=== PATIENT | female | born 1945 | race Caucasian/White ===

== ENCOUNTER → 2019-11-15 12:02 | Outpatient (BNVA) | payer MEDICARE, SELFPAY | PROVIDERS: Family Provider Nurse Practitioner; PCP Nurse Practitioner; Visit Provider Nurse Practitioner Family | DX: I10 Essential (primary) hypertension (principal); E78.2 Mixed hyperlipidemia; R53.83 Other fatigue; R25.2 Cramp and spasm; Z79.899 Other long term (current) drug therapy | CPT/HCPCS: 80053; 80061; 81001; 83036; 83735; 84443; 85025; 87086 ==

== ENCOUNTER → 2021-01-04 12:04 | Outpatient (BNVA) | payer MEDICARE, SELFPAY | PROVIDERS: Family Provider Nurse Practitioner; PCP Nurse Practitioner Family; Visit Provider Nurse Practitioner Family | DX: I10 Essential (primary) hypertension (principal); Z79.899 Other long term (current) drug therapy; E55.9 Vitamin D deficiency, unspecified; E78.2 Mixed hyperlipidemia | CPT/HCPCS: 80053; 80061; 81003; 82306; 83036; 84443; 85025; 87077; 87086; 87184 ==

== ENCOUNTER → 2021-01-23 09:37 | Outpatient (BNVA) | payer MEDICARE, SELFPAY | PROVIDERS: Family Provider Nurse Practitioner; PCP Nurse Practitioner Family; Visit Provider Nurse Practitioner Family | DX: N39.0 Urinary tract infection, site not specified (principal) | CPT/HCPCS: 81003 ==

== ENCOUNTER → 2021-05-22 09:41 | Outpatient (BNVA) | payer MEDICARE, SELFPAY | PROVIDERS: Family Provider Nurse Practitioner; PCP Nurse Practitioner Family; Visit Provider Nurse Practitioner Family | DX: R53.83 Other fatigue (principal); I10 Essential (primary) hypertension | CPT/HCPCS: 80053; 81003; 82043; 82607; 83550; 85025 ==

== ENCOUNTER → 2022-01-27 09:58 | Outpatient (BNVA) | payer MEDICARE, SELFPAY | PROVIDERS: Family Provider Nurse Practitioner; PCP Nurse Practitioner Family; Visit Provider Nurse Practitioner Family | DX: I10 Essential (primary) hypertension (principal); E78.2 Mixed hyperlipidemia; R53.83 Other fatigue; Z79.899 Other long term (current) drug therapy; N39.0 Urinary tract infection, site not specified | CPT/HCPCS: 80053; 80061; 81003; 82306; 83036; 84443; 85025 ==

== ENCOUNTER → 2023-04-16 08:37 | Outpatient (BNVA) | payer MEDICARE, SELFPAY | PROVIDERS: Family Provider Nurse Practitioner; PCP Nurse Practitioner; Visit Provider Nurse Practitioner | DX: I10 Essential (primary) hypertension (principal); Z79.899 Other long term (current) drug therapy; E78.2 Mixed hyperlipidemia; R53.83 Other fatigue | CPT/HCPCS: 80053; 80061; 84443; 85025 ==

== ENCOUNTER → 2023-05-12 09:48 | Outpatient (BNVA) | payer MEDICARE, OTHER, SELFPAY | PROVIDERS: Family Provider Nurse Practitioner; PCP Nurse Practitioner; Visit Provider Nurse Practitioner | DX: R30.0 Dysuria (principal) | CPT/HCPCS: 81000 ==

== ENCOUNTER → 2024-03-11 09:02 | Outpatient (BNVA) | payer MEDICARE, OTHER, SELFPAY | PROVIDERS: Family Provider Nurse Practitioner; PCP Nurse Practitioner; Visit Provider Nurse Practitioner Family | DX: Z79.899 Other long term (current) drug therapy (principal); R53.83 Other fatigue; E78.2 Mixed hyperlipidemia; I10 Essential (primary) hypertension | CPT/HCPCS: 80061; 81003; 82306; 83036; 84443; 85025 ==

== ENCOUNTER → 2024-03-16 10:39 | Outpatient (BNVA) | payer MEDICARE, OTHER, SELFPAY | PROVIDERS: Family Provider Nurse Practitioner; PCP Nurse Practitioner Family; Visit Provider Nurse Practitioner Family | DX: F32.89 Other specified depressive episodes (principal); F41.8 Other specified anxiety disorders; E78.2 Mixed hyperlipidemia; I10 Essential (primary) hypertension; D64.9 Anemia, unspecified | CPT/HCPCS: 80053; 82607; 82728; 82746; 83550; 83735 ==

== ENCOUNTER → 2025-01-04 09:04 | Outpatient (BNVA) | payer MEDICARE, SELFPAY | PROVIDERS: PCP Nurse Practitioner Family; Visit Provider Nurse Practitioner Family | DX: Z79.899 Other long term (current) drug therapy (principal); I10 Essential (primary) hypertension; E78.2 Mixed hyperlipidemia; F41.8 Other specified anxiety disorders; D64.9 Anemia, unspecified; R53.83 Other fatigue; E55.9 Vitamin D deficiency, unspecified | CPT/HCPCS: 80053; 80061; 82306; 82728; 82746; 83036; 83550; 83735; 84443; 85025 ==